=== PATIENT | female | born 1945 | race Hispanic/Latino ===

== ENCOUNTER → 2022-10-08 | Outpatient (CLI) | payer MEDICARE | END | disposition home or self-care (01) | LOC: RAH 09:22 | PROVIDERS: ATTEND Physical Medicine & Rehabilitation | DX: M75.111 Incomplete rotator cuff tear or rupture of right shoulder, not specified as traumatic (principal); M62.511 Muscle wasting and atrophy, not elsewhere classified, right shoulder; M25.711 Osteophyte, right shoulder; M19.011 Primary osteoarthritis, right shoulder | CPT/HCPCS: 73221 ==

== ENCOUNTER → 2024-05-28 | Outpatient (CLI) | payer MEDICARE ==
[2024-05-28 12:54] LABS: ALBUMIN 3.8 g/dL (3.5-5.0); BILIRUBIN,TOTAL 0.7 mg/dL (0.2-1.0); CREATININE 0.8 mg/dL (0.5-1.0); POTASSIUM 4.2 mmol/L (3.5-5.1); TOTAL PROTEIN, SERUM 7.3 g/dL (6.0-8.3)
== END | disposition home or self-care (01) ==
LOC: LAB 08:05
PROVIDERS: ATTEND Student in an Organized Health Care Education/Training Program
DX: I25.10 Atherosclerotic heart disease of native coronary artery without angina pectoris (principal)
CPT/HCPCS: 36415; 80053

== ENCOUNTER → 2024-06-04 | Outpatient (CLI) | payer MEDICARE ==
[~2024-06-04] MED LIST: IOHEXOL 350 MG/ML 100ML INFUS..BTL IV ONE
== END | disposition home or self-care (01) ==
LOC: RAH 09:49
PROVIDERS: ATTEND Student in an Organized Health Care Education/Training Program
DX: R07.9 Chest pain, unspecified (principal); I25.10 Atherosclerotic heart disease of native coronary artery without angina pectoris; M47.815 Spondylosis without myelopathy or radiculopathy, thoracolumbar region
CPT/HCPCS: 75574; Q9967

== ENCOUNTER → 2024-07-19 | Outpatient (CLI) | payer MEDICARE | END | disposition home or self-care (01) | LOC: SHCH 10:00 | PROVIDERS: ATTEND Student in an Organized Health Care Education/Training Program | DX: I10 Essential (primary) hypertension (principal) | CPT/HCPCS: 93306 ==

== ENCOUNTER → 2025-04-11 | Outpatient (CLI) | payer MEDICARE ==
--- NOTE | 2025-04-12 11:30 | HMCIMG ---
MR HIP LEFT WO HISTORY: Pain COMPARISON: None TECHNIQUE: MRI of the left hip was performed utilizing multiple pulse sequences in axial, coronal and sagittal planes. Patient was not given contrast through intravenous route. FINDINGS: There is multiloculated cystic structure adjacent to the lesser trochanter of the proximal femur and posterior acetabulum measuring 2.2 x 2.6 x 1.2 cm suspicious for multiloculated ganglion cysts versus lymphangioma and clinical correlation is recommended. No MR evidence of avascular necrosis, stress fracture or dislocation is seen. Tiny joint effusion is seen. IMPRESSION: 1. There is multiloculated cystic structure adjacent to the lesser trochanter of the proximal femur and posterior acetabulum measuring 2.2 x 2.6 x 1.2 cm suspicious for multiloculated ganglion cysts versus lymphangioma and clinical correlation is recommended.
--- NOTE | 2025-04-12 11:33 | HMCIMG ---
MR HIP RIGHT WO HISTORY: Pain COMPARISON: None TECHNIQUE: MRI of the right hip was performed utilizing multiple pulse sequences in axial, coronal and sagittal planes. Patient was not given contrast through intravenous route. FINDINGS: There is multiloculated cystic structure adjacent to the lesser trochanter of the proximal femur and posterior acetabulum measuring 3.2 x 2.1 cm with serpiginous appearance suspicious for lymphangiomatosis with other possibilities such as ganglion cysts not excluded. Clinical correlation is recommended. Prominent serpiginous structures are also noted predominantly in the gluteus muscle. No MR evidence of avascular necrosis, stress fracture or dislocation is seen. Tiny joint effusion is seen. IMPRESSION: 1. There is multiloculated cystic structure adjacent to the lesser trochanter of the proximal femur and posterior acetabulum measuring 3.2 x 2.1 cm with serpiginous appearance suspicious for lymphangiomatosis with other possibilities such as ganglion cysts not excluded. Clinical correlation is recommended. Prominent serpiginous structures are also noted predominantly in the gluteus muscle.
== END | disposition home or self-care (01) ==
LOC: RAH 14:38
PROVIDERS: ATTEND Internal Medicine Nephrology
DX: M85.652 Other cyst of bone, left thigh (principal); M85.651 Other cyst of bone, right thigh; M25.452 Effusion, left hip; M25.451 Effusion, right hip; M25.552 Pain in left hip; M25.551 Pain in right hip
CPT/HCPCS: 73721